=== PATIENT | female | born 1945 | race Caucasian/White ===

== ENCOUNTER 2017-03-24 11:08 | Outpatient (CLI) | payer MEDICARE, BC ==
[2016-02-08 11:59] VITALS: O2SAT 96
== END 2017-03-24 11:09 | disposition home or self-care (01) | DRG 554 ==
LOC: CONVCARE 11:08
PROVIDERS: ATTEND Orthopaedic Surgery
DX: M16.12 Unilateral primary osteoarthritis, left hip (principal); Z96.651 Presence of right artificial knee joint; Z47.1 Aftercare following joint replacement surgery
CPT/HCPCS: 73502; 73560